=== PATIENT | female | born 1975 | race Caucasian/White ===

== ENCOUNTER 2017-01-02 07:58 | Day surgery (SDC) | payer MEDICAID ==
[~2017-01-02] VITALS: Ht 156.2 cm; Wt 72.6 kg
[2017-01-02] MEDS ORDERED: BUPIVACAINE-MPF/EPI 0.25% 30 ML VIAL INJ ONE (09:40)
[2017-01-02] MEDS ORDERED: MIDAZOLAM 2 MG/2 ML VIAL ONE (10:01)
[2017-01-02] MEDS ORDERED: ONDANSETRON 4 MG/2 ML VIAL IVP ONE (10:01)
[2017-01-02] MEDS ORDERED: MORPHINE SULFATE 4 MG/ML SYR ONE (10:01)
[2017-01-02] MEDS ORDERED: SEVOFLURANE 250 ML BTL INH ONE (10:01)
[2017-01-02] MEDS ORDERED: PROPOFOL 200 MG/20 ML VIAL IV ONE (10:01)
[2017-01-02] MEDS ORDERED: fentaNYL 0.05 MG/ML VIAL ONE (10:01)
[2017-01-02] MEDS ORDERED: DEXAMETHASONE 4 MG/ML VIAL IVP ONE (10:01)
[2017-01-02] MEDS ORDERED: MIDAZOLAM 2 MG/2 ML VIAL IV ONE (10:35)
[2017-01-02] MEDS ORDERED: METOCLOPRAMIDE 10 MG/2 ML INJ VIAL IVP PRN (10:35)
[2017-01-02] MEDS ORDERED: MORPHINE SULFATE 2 MG/ML SYR IVP PRN ×2 (10:35→11:00)
[2017-01-02] MEDS ORDERED: MORPHINE SULFATE 4 MG/ML SYR IVP PRN ×2 (10:35)
[2017-01-02] MEDS ORDERED: HYDROmorphone 1 MG/ML AMP IVP PRN (11:00)
[2017-01-02] MEDS ORDERED: ACETAMINOPHEN 325 MG TAB PO PRN (11:00)
[2017-01-02] MEDS ORDERED: MORPHINE SULFATE 4 MG/ML SYR IV PRN (11:00)
[2017-01-02] MEDS ORDERED: ONDANSETRON 4 MG/2 ML VIAL IV PRN (11:00)
== END 2017-01-02 12:50 | disposition home or self-care (01) ==
LOC: MDS 07:58 → MMU 07:59 → MDS 12:50
PROVIDERS: ATTEND Surgery
DX: D24.2 Benign neoplasm of left breast (principal); Z98.890 Other specified postprocedural states
CPT/HCPCS: 19120; 36415; 71010; 76942; 80053; 81025; 85025; 93005; J0690; J1100; J2250; J2270; J2405; J2704; J3010; J3490; J7030; J7060; J7120; Q0092